=== PATIENT | male | born 1995 | race Caucasian/White ===

== ENCOUNTER 2019-09-28 15:16 | Emergency (ER) | payer SELFPAY | END 2019-09-28 18:00 | disposition home or self-care (01) | LOC: ERS 15:16 | DX: S16.1XXA Strain of muscle, fascia and tendon at neck level, initial encounter (principal); V53.5XXA Driver of pick-up truck or van injured in collision with car, pick-up truck or van in traffic accident, initial encounter | CPT/HCPCS: 99283; G0390 ==

== ENCOUNTER 2019-10-03 14:24 | Emergency (ER) | payer OTHER, SELFPAY ==
--- NOTE | 2019-10-03 17:23 | CT ---
CT BRAIN NONCONTRAST: DATE: 10/03/2019 HISTORY: 24-year-old male with delayed onset posttraumatic headache FINDINGS: There is no evidence of acute intra-axial or extra-axial hemorrhage. There is no midline shift or any other mass effect. There is no extra-axial fluid collection. The ventricles are normal in size and configuration. The tympanomastoid cavities, and the upper portions of the paranasal sinuses included in these images, are grossly clear. Calvarium is intact. IMPRESSION: Normal.
== END 2019-10-03 17:40 | disposition home or self-care (01) ==
LOC: ERS 14:24
DX: S06.0X9A Concussion with loss of consciousness of unspecified duration, initial encounter (principal); S70.11XA Contusion of right thigh, initial encounter; V89.2XXA Person injured in unspecified motor-vehicle accident, traffic, initial encounter
CPT/HCPCS: 70450